=== PATIENT | male | born 1960 | race Caucasian/White ===

== ENCOUNTER → 2024-11-30 09:45 | Outpatient (REF) | payer BC, SELFPAY | LOC: RCS 09:45 | PROVIDERS: ATTENDING PHYSICIAN Internal Medicine Cardiovascular Disease; FAMILY PHYSICIAN Family Medicine | DX: R07.89 Other chest pain (principal); E78.2 Mixed hyperlipidemia | CPT/HCPCS: 93017 ==

== ENCOUNTER → 2024-12-09 15:39 | Outpatient (REF) | payer BC, SELFPAY | LOC: HWRCS 15:39 | PROVIDERS: ATTENDING PHYSICIAN Internal Medicine Cardiovascular Disease; FAMILY PHYSICIAN Family Medicine | DX: R07.89 Other chest pain (principal) | CPT/HCPCS: 93306 ==